=== PATIENT | female | born 1985 | race Caucasian/White ===

== ENCOUNTER 2018-05-22 07:34 | Inpatient (IN) ==
[2018-05-22] MEDS ORDERED: RINGER'S SOLUTION,LACTATED 1,000 ML IV PRN (07:57)
[2018-05-22 08:12] LABS: Hematocrit 36.7 % (37.0-47.0); Hemoglobin 12.8 gm/dL (12.5-16.0); Mean Cell Volume 83.8 fl (78-100); Mean Corpuscular Hemoglobin 29.2 pg (27-31); Mean Corpuscular Hgb Conc 34.9 g/dl (32-36); Mean Platelet Volume 10.9 fl (8-12.5); Neutrophil # 7.9 K/mm3 (1.3-6.0); Neutrophil % 67.7 % (42-75.0); Platelet Count 291 K/mm3 (150-450); Red Blood Count 4.38 M/mm3 (4.2-5.4); Red Cell Distribution Width 13.4 % (11.5-14.0); White Blood Count 11.6 K/mm3 (4.0-10.5)
[2018-05-22 08:23] LABS: Prothrombin Time (Patient) 9.4 Seconds (9.0-11.0)
[2018-05-22 08:24] LABS: INR 0.94 INR (0.90-1.10); Partial Thrombolplastin Time 26.8 Seconds (24-32)
[2018-05-22 08:26] LABS: Albumin * 2.5 gm/dl (3.4-5.0); Anion Gap 13.3 mmol/L (6.8-13.8); BUN/Creatinine Ratio 10.7 (9.0-21.6); Bilirubin, Total 0.2 mg/dL (0.0-1.1); Ca. Corrected For Albumin 9.7 mg/dL (8.4-10.2); Calcium * 8.8 mg/dL (7.9-10.9); Carbon Dioxide 21.4 mmol/L (24-32.6); Potassium 3.7 mmol/L (3.4-4.6); Total Protein 6.9 gm/dL (6.2-8.2)
--- NOTE | 2018-05-22 09:16 | HP ---
Chief Complaint - Chief Complaint Date of Service: 05/22/18 Chief Complaint: vaginal bleeding, 9 month , no care History of Present Illness: 33 yo, CF, , with no care, 9 month and vaginal bleeding presenting straight through ER to the birthplace. Patient is low functioning. Her mother states she is 9 month by her LMP, which was unknown. Vaginal bleeding stated this morning around 6 am, passes a golf ball size clot in the toilet and with blood stained underwear. Overall bleeding appeared small. Appeared to have contraction pain for 2 days. Appeared to have mucus vaginal discharge, but no leaking fluid. She is daliy alcohol and cigarette user. She used meth and cocaine two months ago. On ultrasound today, she is 34.3 weeks with EDC of 06/30/18, EFW of 2430 g, fundal posterior placenta, diffusely calcified placenta and CHRISTA less than 2 cm and fluid appeared echogenic, suggested possible blood. Her cervix was 4 cm/80% and -1. PMH: asthma, mild PSH: tonsilectomy, ear tubes and bladder surgery at age 5. SH: as in HPI ALL: meperidine, theophylline Social History: Preferred Language Occitan No Social History Section defined Review Of Systems (GEN) - Review of Systems Abdominal: Present: Other - contractions Genitourinary: Present: Other - vaginal bleeding Misc: All systems neg except as marked Allergies/Adverse Reactions: Allergies Allergy/AdvReac Type Severity Reaction Status Date / Time meperidine [From Demerol] Allergy Verified 05/22/18 07:58 theophylline Allergy Verified 05/22/18 07:58 Home Medications: HOME MEDICATIONS NK 05/22/18 [Last Taken Unknown] Exam - Exam Constitutional: Present: Alert, Oriented x3, Cooperative Neck: Present: supple Back Exam: Present: no CVA tenderness Respiratory: Present: lungs clear, normal breath sounds, no respiratory distress, No rales, No wheezing Cardiovascular/Chest: Present: normal peripheral pulses, regular rate, rhythm, no murmur Abdomen: Present: soft, nontender, nondistended, other - gravid /Rectal: Present: Other - cervix 4 cm, 80% and -1 Extremity: Present: normal range of motion, normal inspection, no pedal edema, no calf tenderness Skin Exam: Present: normal color, warm/dry, no cyanosis Appearance: Present: appropriate appearance Eye contact: Present: cooperative, good eye contact, normal speech Diagnostic Studies: Abnormal Lab Results 05/22/18 05/22/18 Range/Units 07:55 07:55 WBC 11.6 H (4.0-10.5) K/mm3 Hct 36.7 L (37.0-47.0) % Immature Gran % (Auto) 0.70 H (0.001-0.429) % Immature Gran # (Auto) 0.08 H (0.000-0.0310) K/mm3 Neutrophils # 7.9 H (1.3-6.0) K/mm3 Carbon Dioxide 21.4 L (24-32.6) mmol/L ALT 14 L (19-67) U/L Alkaline Phosphatase 173 H (50-170) U/L Albumin 2.5 L (3.4-5.0) gm/dl Laboratory Results WBC 11.6 K/mm3 (4.0-10.5) H 05/22/18 07:55 RBC 4.38 M/mm3 (4.2-5.4) 05/22/18 07:55 Hgb 12.8 gm/dL (12.5-16.0) 05/22/18 07:55 Hct 36.7 % (37.0-47.0) L 05/22/18 07:55 MCV 83.8 fl (78-100) 05/22/18 07:55 MCH 29.2 pg (27-31) 05/22/18 07:55 MCHC 34.9 g/dl (32-36) 05/22/18 07:55 RDW 13.4 % (11.5-14.0) 05/22/18 07:55 Plt Count 291 K/mm3 (150-450) 05/22/18 07:55 MPV 10.9 fl (8-12.5) 05/22/18 07:55 Immature Gran % (Auto) 0.70 % (0.001-0.429) H 05/22/18 07:55 Immature Gran # (Auto) 0.08 K/mm3 (0.000-0.0310) H 05/22/18 07:55 Neutrophils % 67.7 % (42-75.0) 05/22/18 07:55 Lymphocytes % 22.9 % (20-51) 05/22/18 07:55 Monocytes % 7.3 % (0.0-9) 05/22/18 07:55 Eosinophils % 0.9 % (0.0-3.0) 05/22/18 07:55 Basophils % 0.5 % (0.0-1.0) 05/22/18 07:55 Nucleated RBC % 0.0 k/mm3 (0-1) 05/22/18 07:55 Neutrophils # 7.9 K/mm3 (1.3-6.0) H 05/22/18 07:55 Lymphocytes # 2.66 k/mm3 (1.5-3.5) 05/22/18 07:55 Monocytes # 0.9 k/mm3 (0.0-1.0) 05/22/18 07:55 Eosinophils # 0.1 k/mm3 (0.0-0.7) 05/22/18 07:55 Absolute Basophils 0.1 k/mm3 (0.0-0.1) 05/22/18 07:55 PT 9.4 Seconds (9.0-11.0) 05/22/18 07:55 INR (Anticoag Therapy) 0.94 INR (0.90-1.10) 05/22/18 07:55 PTT (Kermit) 26.8 Seconds (24-32) 05/22/18 07:55 Sodium 133 mmol/L (132-142) 05/22/18 07:55 Plasma Sodium 133 mmol/L (130-142) 05/22/18 07:55 Potassium 3.7 mmol/L (3.4-4.6) 05/22/18 07:55 Chloride 102 mmol/L (97-106) 05/22/18 07:55 Carbon Dioxide 21.4 mmol/L (24-32.6) L 05/22/18 07:55 Anion Gap 13.3 mmol/L (6.8-13.8) 05/22/18 07:55 BUN 8 mg/dL (3-23) 05/22/18 07:55 Creatinine 0.75 mg/dL (0.4-1.4) 05/22/18 07:55 Est GFR (Non-Af Amer) 93 mL/min (60-130) 05/22/18 07:55 BUN/Creatinine Ratio 10.7 (9.0-21.6) 05/22/18 07:55 Random Glucose 81 mg/dL (70-110) 05/22/18 07:55 Calcium 8.8 mg/dL (7.9-10.9) 05/22/18 07:55 Calcium Adj for Albumin 9.7 mg/dL (8.4-10.2) 05/22/18 07:55 Total Bilirubin 0.2 mg/dL (0.0-1.1) 05/22/18 07:55 AST 29 U/L (0-48) 05/22/18 07:55 ALT 14 U/L (19-67) L 05/22/18 07:55 Alkaline Phosphatase 173 U/L (50-170) H 05/22/18 07:55 Total Protein 6.9 gm/dL (6.2-8.2) 05/22/18 07:55 Albumin 2.5 gm/dl (3.4-5.0) L 05/22/18 07:55 u/s: cephalic Assessment/Plan - Narrative Narrative: A: 33 yo, CF, at 34.3 week by u/s, no care, 9 month per patient's mother, vaginal bleeding but small overall, placenta diffusely echogenic suggesting overdue, lower CHRISTA < 2 and echogenic fluid suggesting possible blood, low functioning, meth and cocaine user. tracing difficult to interpret, but overall cat II. Plan: may need to deliver here. will monitor for now and consult the [facility] for possible transfer due to NICU need. Sameer Varela MD
[2018-05-22] MEDS ORDERED: PENICILLIN G POTASSIUM 5 MILLIONUNT in DEXTROSE 5 % IN WATER 100 ML IV ONE ×2 (09:27)
[2018-05-22] MEDS ORDERED: RINGER'S SOLUTION,LACTATED 1,000 ML IV ONE (09:27)
[2018-05-22 09:40] LABS: Cocaine Ur Negative (NEGATIVE); Urine Barbiturate Negative (NEGATIVE); Urine Benzodiazepines Negative (NEGATIVE); Urine Opiates Negative (NEGATIVE); Urine PCP Negative (NEGATIVE); Urine THC Negative (NEGATIVE)
[2018-05-22] MEDS ORDERED: OXYTOCIN 20 UNITS in RINGER'S SOLUTION,LACTATED 1,000 ML IV ONE (09:52)
[2018-05-22] MEDS ORDERED: ceFAZolin SODIUM/DEXTROSE,ISO 2 GM/50 ML BAG IV ONE (09:52)
[2018-05-22 10:22] LABS: Urine Appearance Slightly Cloudy (CLEAR); Urine Blood 5 /ul (NEGATIVE); Urine Color Yellow; Urine Ketone Negative (NEGATIVE); Urine Nitrite Negative (NEGATIVE); Urine Protein Negative (NEGATIVE); Urine pH 7.5 pH (5.0-7.0)
[2018-05-22 10:24] LABS: Urine WBC 0-5 /hpf (0-5)
[2018-05-22 10:26] LABS: Urine Bacteria TRACE; Urine Bilirubin Negative (NEGATIVE)
[2018-05-22 10:27] LABS: Urine RBC 0-5 /hpf (0-5)
[2018-05-22 10:28] LABS: Urine Amorphous Sediment Few - 1+ (NONE-FEW)
--- NOTE | 2018-05-22 11:50 | ANES ---
Anesthesia Pre Procedure Eval Vitals/Labs: Last Vital Signs Temp 36.4 C 05/22/18 11:40 Pulse 83 05/22/18 11:40 Resp 24 H 05/22/18 11:40 BP 98/50 05/22/18 11:40 Pulse Ox 98 05/22/18 11:40 HOME MEDICATIONS NK 05/22/18 [Last Taken Unknown] Allergies/Adverse Reactions: Allergies Allergy/AdvReac Type Severity Reaction Status Date / Time meperidine [From Demerol] Allergy Verified 05/22/18 07:58 theophylline Allergy Verified 05/22/18 07:58 - Planned Procedure Planned Procedure: C/S Medication List Reviewed:: Yes Allergies Verified: Yes Medical History (Last Reviewed 05/22/18 @ 11:49 by Teofilo Zamudio CRNA) Alcohol abuse affecting Asthma Drug abuse Family History (Last Reviewed 05/22/18 @ 11:49 by Teofilo Zamudio CRNA) Mother Diabetes, type I Myocardial infarction Hypertension copd Grandmother Myocardial infarction Diabetes, type I - Family Anesthesia History Family History:: no untoward family reactions to anesthesia, no familial bleeding tendencies, no family history of clotting disorders, no family history of premature - Airway/Neck/Teeth Within Normal Limits:: No Teeth Condition: missing, poor condition Mallampatti Score: 3 Thyromental (T-M) distance: > 6 cm Mandibulo Hyoid distance: > 3 cm - Respiratory Respiratory History: asthma Respiratory Physical: lungs clear Smoking Status: Current every day smoker Discussed smoking cessation including day of surgery: Yes Sleep Apnea currently treated: No Sleep Apnea by current assessment: Yes Discussed Risks/Treatment of GUERO: No - Cardiovascular Tolerate Activity: Fair Heart Sounds: S1 & S2, Regular - Anesthesia Assessment and Plan ASA Class: PS, II, E Anesthesia Type Plan: Spinal
--- NOTE | 2018-05-22 11:50 | ANES ---
Post Anesthesia Discharge - Transfer of Care Transfer of Care handoff given to nurse: Yes - Discharge from PACU Discharge from PACU when meets criteria: Yes - Discharge to ASU Discharge to ASU-no complications/pt stable: Yes
--- NOTE | 2018-05-22 11:52 | ANES ---
Post Anesthesia Assessment - Vital Signs Vitals: Last Vital Signs Temp 36.4 C 05/22/18 11:40 Pulse 75 05/22/18 11:45 Resp 22 H 05/22/18 11:45 BP 114/60 05/22/18 11:45 Pulse Ox 99 05/22/18 11:45 Airway Patency: Normal - Mental Status Level Of Consciousness: Awake - Pain Level Pain Score: 0 - N/V Assessment Nausea/Vomiting Presence: None Dehydration:: No
--- NOTE | 2018-05-22 12:11 | OR ---
Operative Report - Dictated Report Narrative: DATE OF PROCEDURE: 05/22/2018 PROCEDURE: 1. Primary low transverse section ANESTHESIA: Epidural. PREOPERATIVE DIAGNOSES: 1. 9 month with no care and vaginal bleeding. 2. 34.3 weeks on ultrasound, oligohydramnios CHRISTA < 2cm, echogenic amniotic fluid, suspected for possible blood and calcified placenta, possible overdue. 3. Daily cigarette smoking and alcohol use with methamphetemine and cocaine use 2 months ago. 4. Hypertension/preelcampsia? 5. Category II tracing with heart rate deceleration to the 70s, concerning for non-reassuring status. POSTOPERATIVE DIAGNOSES: 1. 9 month with no care and vaginal bleeding. 2. 34.3 weeks on ultrasound, oligohydramnios CHRISTA < 2cm, echogenic amniotic fluid, suspected for possible blood and calcified placenta, possible overdue. 3. Daily cigarette smoking and alcohol use with methamphetemine and cocaine use 2 months ago. 4. Hypertension/preeclampsia? 5. Category II tracing with heart rate deceleration to the 70s, concerning for non-reassuring status. 6. Placental abruption, with bloody amniotic fluid. SURGEON: Sameer Varela M.D. TEACHERS' ASSISTANT: Kristyn Davis FINDINGS: 1. Male in cephalic presentation. small amniotic fluid appeared all bloody. Baby pale. Weight 2451 g, 6/7/8, Time of delivery: 10:40 2. Normal uterus, and normal bilateral ovaries and tubes SPECIMENS: placenta DRAIN: Chavarria to gravity. URINE OUTPUT: 150 ml. BLOOD LOSS: 200 ml. IV FLUIDS: 1600 ml COMPLICATIONS: None. Description of Operative Procedure: The patient consented prior to the operation and was taken to the operating room. Spinal anesthesia was performed without complications. Two grams of Ancef was given at time of spinal anesthesia. The patient was then placed in the dorsal supine position with leftward tilt. Sequential compression device was placed on the lower extremities. A Chavarria catheter was already in place. The abdomen was prepped with Duraprep and draped in the usual sterile fashion. A time-out procedure was conducted to confirm the correct patient for the correct procedure. Anesthesia was tested and was adequate. A Pfannenstiel incision was marked and then made with a scalpel. The incision was carried through the subcutaneous layer to the fascia. The fascia was incised at the midline and extended laterally sharply as well as bluntly. The upper edge and the lower edge of the fascia incision was bluntly along the midline. The rectus muscles were in the midline. The peritoneum was entered bluntly with a finger. The peritoneal incision was extended superiorly and inferiorly with good visualization of the bladder. A bladder blade was inserted. The vesicouterine peritoneum was identified. The lower uterine segment was incised in a transverse fashion with the scalpel. The amniotic sac was ruptured with small bloody fluid. The incision was extended laterally by stretching. The baby was in cephalic presentation. The head was elevated through the incision. Fundal pressure was applied and the baby was delivered atraumatically. Baby cried at . The cord was clamped and cut. The baby was handed off to the stummel selector and nurse in attendance. Cord blood was obtained, but not much. The placenta was removed manually. The uterus was exteriorized, and cleared off clots and membrane. The uterine incision was closed with 0 vicryl in a running-lock fashion. A second imbricating layer was placed with 2-0 Vicryl in a continuous non-lock fashion. Good hemostasis and reapproximation were obtained. The posterior cul-de-sac was cleared off clots and fluid. The uterus was r eturned to the abdomen. The gutters were cleared of blood clots and fluid. The peritoneum was closed with 2-0 Vicryl. The rectus muscle was inspected and found hemostatic. The fascia was reapproximated with #1 Vicryl in running fashion. The subcutaneous layer was irrigated with saline. The subcutaneous layer was closed with two interrupted 2-0 vicryl sutures. The skin was closed with 3-0 Monocryl suture in a subcuticular fashion. Dermabond was applied to the incision. The incision was covered with Steri strips, Telfa, ABD and adhesive pressure dressing tape. The patient tolerated the procedure well. Sponge, lap, needle and instrument counts were correct x 2. The patient was taken to the recovery room in stable condition. Sameer Varela MD History for MU Definition: * The number of deliveries resulting in a live the patient experienced prior to current hospitalization * The previous delivery of live twins or any live multiple gestation is considered one live event. *If primagravida or nulliparous is documented select zero for the number of previous live births. Live Events: 0
[2018-05-22] MEDS ORDERED: diphenhydrAMINE HCL 25 MG CAPSULE PO PRN (12:27)
[2018-05-22] MEDS ORDERED: BISACODYL 10 MG SUPP.RECT RC PRN (12:27)
[2018-05-22] MEDS ORDERED: ONDANSETRON HCL/PF 2 MG/ML VIAL IV PRN (12:27)
[2018-05-22] MEDS ORDERED: oxyCODONE HCL/ACETAMINOPHEN 1 TAB TABLET PO PRN ×2 (12:27)
[2018-05-22] MEDS ORDERED: SIMETHICONE 80 MG TAB.CHEW PO PRN (12:27)
[2018-05-22] MEDS ORDERED: SENNOSIDES 8.6 MG TABLET PO PRN (12:27)
[2018-05-22] MEDS ORDERED: IBUPROFEN 800 MG TABLET PO PRN (12:27)
[2018-05-22] MEDS ORDERED: KETOROLAC TROMETHAMINE 30 MG/ML VIAL IV PRN (12:27)
[2018-05-22] MEDS ORDERED: PENICILLIN G POTASSIUM 2.5 MILLIONUNT in DEXTROSE 5 % IN WATER 100 ML IV SCH ×2 (13:27)
[2018-05-22] MEDS ORDERED: DIPHTH,PERTUSS(ACELL),TET VAC 0.5 ML VIAL IM ONE (17:00)
[2018-05-22] MEDS: DOCUSATE SODIUM 100 MG CAPSULE PO SCH (21:05)
[2018-05-23] MEDS: DOCUSATE SODIUM 100 MG CAPSULE PO SCH ×2 (08:53→22:20)
--- NOTE | 2018-05-23 09:08 | PN ---
Subjective - Date and Time Seen Date: 05/23/18 Subjective Narrative: post op day 1, s/p primary c/s no complaints. ambulating and tolerating diet well. pain controlled. lochia normal. Objective - Vitals Vitals: Last Vital Signs Temp 36.3 C 05/23/18 06:36 Pulse 66 05/23/18 06:36 Resp 20 05/23/18 06:36 BP 118/68 05/23/18 06:36 Pulse Ox 100 05/23/18 06:36 - Abnormal Lab Findings Abnormal Lab Findings: Abnormal Lab Results 05/22/18 05/22/18 Range/Units 07:45 09:29 Urine Blood 5 H (NEGATIVE) /ul Urine Urobilinogen 2.0 H (NORMAL) EU/dl Ur Leukocyte Esterase 25 H (NEGATIVE) /ul Urine Amphetamine Positive H (NEGATIVE) - Exam Constitutional: Present: Alert, Oriented x3, Cooperative Respiratory: Present: no respiratory distress Cardiovascular/Chest: Present: normal peripheral pulses Abdomen: Present: soft, nondistended, other - incision dressing dry. fundus below umbilicus Extremity: Present: normal range of motion, no pedal edema, no calf tenderness Skin Exam: Present: normal color, warm/dry, no cyanosis Appearance: Present: appropriate appearance Eye contact: Present: cooperative, good eye contact, normal speech Cauti Physician Documentation - Urinary Catheter Management Urethral (Chavarria) Date of Insertion: 05/22/18 Time of Insertion: 09:31 Date of Removal: 05/22/18 Time of Removal: 23:00 Assessment/Plan Plan Narrative: A: post op day 1, s/p primary c/s. stable. Plan: routine post op care. ambulation encouraged. Sameer Varela MD
[2018-05-24 08:37] VITALS: BP 151/82
[2018-05-24] MEDS: DOCUSATE SODIUM 100 MG CAPSULE PO SCH (09:00)
--- NOTE | 2018-05-24 11:36 | PN ---
Subjective - Date and Time Seen Date: 05/24/18 Subjective Narrative: post op day 2, s/p . doing well. ambulating and tolerating pain well. normal lochia. wants to go home and go see her baby in [place]. Objective - Vitals Vitals: Last Vital Signs Temp 35.9 C L 05/24/18 08:20 Pulse 73 05/24/18 08:20 Resp 20 05/24/18 08:20 BP 151/82 H 05/24/18 08:20 Pulse Ox 97 05/24/18 08:20 - Exam Constitutional: Present: Alert, Oriented x3, Cooperative Respiratory: Present: no respiratory distress Cardiovascular/Chest: Present: normal peripheral pulses Abdomen: Present: soft, nondistended, other - incision dry and clean with dermabond. fundus firm and below unbilicus. Extremity: Present: normal range of motion Skin Exam: Present: normal color, warm/dry, no cyanosis Appearance: Present: appropriate appearance Eye contact: Present: cooperative, good eye contact, normal speech Cauti Physician Documentation - Urinary Catheter Management Urethral (Chavarria) Date of Insertion: 05/22/18 Time of Insertion: 09:31 Date of Removal: 05/22/18 Time of Removal: 23:00 Assessment/Plan Plan Narrative: A: post op day 2, s/p c/s, stable and well. plan: discharge home today. Sameer Varela MD
[2018-05-27 08:02] LABS: Hepatitis B Surface Antigen NON REACTIVE
== END 2018-05-24 12:10 | disposition home or self-care (01) | DRG 786 ==
LOC: OBCLINIC 07:34 → OB 08:39
PROVIDERS: ADMIT Obstetrics & Gynecology; ATTEND Obstetrics & Gynecology
CPT/HCPCS: 36415; 59025; 76815; 76817; 80053; 80307; 81001; 85025; 85610; 85730; 86592; 86850; 86900; 87340; 87389; 88307